=== PATIENT | male | born 1970 ===

== ENCOUNTER 2020-01-14 00:10 | Emergency (ER) | payer BC, OTHER ==
[2020-01-14] MEDS ORDERED: Acetaminophen/HYDROcodone 325-5 MG Tab ONE (00:20)
[2020-01-14] MEDS ORDERED: predniSONE 10 MG Tab ONE (00:20)
[2020-01-14] MEDS: Albuterol/Ipratropium 3.0-0.5 MG/3 ML Neb Soln NEB ONE (00:48)
[2020-01-14] MEDS: Ketorolac 60 MG/2 ML SDV IM ONE (00:49)
--- NOTE | 2020-01-14 00:51 | EDM.PDOC ---
ED HPI GENERAL MEDICAL PROBLEM - General Chief Complaint: Fever Stated Complaint: flu s/s Time Seen by Provider: 01/14/20 00:15 Source of Information: Reports: Patient History Limitations: Reports: No Limitations - History of Present Illness INITIAL COMMENTS - FREE TEXT/NARRATIVE: Gradual onset Friday of h/a. Continued to work through it. Became more ' splitting' in nature and associated with chills on Friday. Seen on Friday and reassured. Ongoing body aches. Also, annoying dry cough interfered with sleep Friday evening. Seen again and provided with albuterol MDI. Not much help. No h/o bronchospastic concerns. Denies ill exposure and/or travel history. - Related Data Allergies Allergy/AdvReac Type Severity Reaction Status Date / Time No Known Allergies Allergy Verified 03/23/16 14:22 Home Meds: Home Meds Citalopram [Citalopram HBr] 40 mg PO DAILY 03/23/16 [History] Lisinopril/Hydrochlorothiazide [Lisinopril-Hctz 20-12.5 mg Tab] 1 tab PO DAILY 03/23/16 [History] Metoprolol Succinate 50 mg PO DAILY 03/23/16 [History] Simvastatin [Zocor] 40 mg PO DAILY 03/23/16 [History] Past Medical History Cardiovascular History: Reports: Hypertension Social & Family History - Family History Family Medical History: Noncontributory ED ROS GENERAL - Review of Systems Review Of Systems: See Below Constitutional: Reports: Fever, Chills HEENT: Reports: Throat Pain. Denies: Ear Pain Respiratory: Reports: Cough. Denies: Sputum Cardiovascular: Denies: Chest Pain GI/Abdominal: Reports: No Symptoms : Reports: No Symptoms ED EXAM, GENERAL - Physical Exam Exam: See Below Exam Limited By: No Limitations General Appearance: Alert, WD/WN, No Apparent Distress Eye Exam: Bilateral Eye: EOMI, PERRL Ears: Normal External Exam, Normal Canal, Hearing Grossly Normal, Normal TMs Nose: Normal Inspection, Normal Mucosa Throat/Mouth: Normal Inspection, Normal Lips, Normal Oropharynx, Normal Voice Head: Atraumatic, Normocephalic Neck: Normal Inspection, Supple, Non-Tender, Full Range of Motion. No: Lymphadenopathy (R), Lymphadenopathy (L) Respiratory/Chest: No Respiratory Distress, Lungs Clear, Normal Breath Sounds GI/Abdominal: Normal Bowel Sounds, Soft Extremities: Normal Inspection, Normal Range of Motion, Normal Capillary Refill Course - Orders/Labs/Meds Orders: Active Orders 24 hr Category Date Time Status RT Aerosol Therapy [RC] ASDIRECTED Care 01/14/20 00:45 Ordered Ketorolac [Toradol] Med 01/14/20 00:46 Once 60 mg IM ONETIME ONE Meds: Medications Discontinued Medications Generic Name Dose Route Start Last Admin Trade Name Ranjitq PRN Reason Stop Dose Admin Albuterol/Ipratropium 3 ml 01/14/20 00:45 Duoneb 3.0-0.5 Mg/3 Ml NEB 01/14/20 00:46 ONETIME ONE Departure - Departure Time of Disposition: 01:00 Disposition: Home, Self-Care 01 Clinical Impression: Cough - Discharge Information Instructions: Cough, Adult, [id number] - My Orders Last 24 Hours: My Active Orders 01/14/20 00:45 RT Aerosol Therapy [RC] ASDIRECTED 01/14/20 00:46 Ketorolac [Toradol] 60 mg IM ONETIME ONE - Assessment/Plan Last 24 Hours: My Active Orders 01/14/20 00:45 RT Aerosol Therapy [RC] ASDIRECTED 01/14/20 00:46 Ketorolac [Toradol] 60 mg IM ONETIME ONE
[2020-01-14 03:05] VITALS: BP 130/90; PULSE 115
== END 2020-01-14 01:24 | disposition home or self-care (01) ==
LOC: LB.ED 00:10
DX: R05 Cough (principal); I10 Essential (primary) hypertension; Z79.899 Other long term (current) drug therapy
CPT/HCPCS: 87804; 87804-59; 96372; 99284; 99284-25; A9270-GY; J1885; J7620-GY; U0001; U0002

== ENCOUNTER 2021-03-12 19:57 | Emergency (ER) | payer MEDICAID ==
[2021-03-12 20:19] VITALS: BP 159/84; PULSE 105
[2021-03-12] MEDS ORDERED: Sodium Chloride 0.9% 10 ML Syringe FLUSH PRN (20:24)
--- NOTE | 2021-03-12 20:33 | EDM.PDOC ---
ED HPI GENERAL MEDICAL PROBLEM - General Chief Complaint: Gastrointestinal Problem Stated Complaint: fatigue, flu symptoms Time Seen by Provider: 03/12/21 19:57 Source of Information: Reports: Patient History Limitations: Reports: No Limitations - History of Present Illness INITIAL COMMENTS - FREE TEXT/NARRATIVE: 50 year old male with PMH of HTN, depression and diverticulitis presents to ED with BRADY, diarrhea, and dizziness that started this AM. Denies any CP, SOB, fever, cough, abdominal pain, blood in stool, nausea. He has had several episodes of diarrhea today and denies any abd pain with palpation, but states this is how his last exacerbation of diverticulitis started. Onset: Today Improves with: Reports: None Worsens with: Reports: None Associated Symptoms: Reports: Headaches - Related Data Allergies Allergy/AdvReac Type Severity Reaction Status Date / Time No Known Allergies Allergy Verified 03/23/16 14:22 Home Meds: Home Meds Citalopram [Citalopram HBr] 40 mg PO DAILY 03/23/16 [History] Lisinopril/Hydrochlorothiazide [Lisinopril-Hctz 20-12.5 mg Tab] 1 tab PO DAILY 03/23/16 [History] Metoprolol Succinate 50 mg PO DAILY 03/23/16 [History] Simvastatin [Zocor] 40 mg PO DAILY 03/23/16 [History] Past Medical History Cardiovascular History: Reports: Hypertension Social & Family History - Family History Family Medical History: No Pertinent Family History ED ROS GENERAL - Review of Systems Review Of Systems: See Below Constitutional: Reports: Decreased Appetite HEENT: Reports: No Symptoms Respiratory: Reports: No Symptoms Cardiovascular: Reports: No Symptoms Endocrine: Reports: No Symptoms GI/Abdominal: Reports: Diarrhea, Decreased Appetite : Reports: No Symptoms Musculoskeletal: Reports: No Symptoms Skin: Reports: No Symptoms Neurological: Reports: Dizziness Psychiatric: Reports: No Symptoms ED EXAM, GI/ABD - Physical Exam Exam: See Below Exam Limited By: No Limitations General Appearance: Alert, No Apparent Distress Eyes: Bilateral: Normal Appearance Ears: Normal External Exam, Hearing Grossly Normal Nose: Normal Inspection, Normal Mucosa, No Blood Throat/Mouth: Normal Inspection, Normal Voice, No Airway Compromise Head: Atraumatic Neck: Normal Inspection, Non-Tender, Full Range of Motion Respiratory/Chest: No Respiratory Distress, Lungs Clear, Normal Breath Sounds Cardiovascular: Normal Peripheral Pulses, No Edema, No JVD, No Murmur, Tachycardia GI/Abdominal Exam: Normal Bowel Sounds, Soft, Non-Tender, No Organomegaly, No Distention Back Exam: Normal Inspection, Full Range of Motion. No: CVA Tenderness (R), CVA Tenderness (L) Extremities: Normal Inspection, Normal Range of Motion, Non-Tender, No Pedal Edema, Normal Capillary Refill Neurological: Alert, Oriented, Normal Cognition, Normal Gait, No Motor/Sensory Deficits Psychiatric: Normal Affect, Normal Mood Skin Exam: Warm, Dry, Intact, Normal Color, No Rash Lymphatic: No Adenopathy Course - Vital Signs Last Recorded V/S: Last Vital Signs Temp 97.9 F 03/12/21 19:57 Pulse 105 H 03/12/21 19:57 Resp 20 03/12/21 19:57 BP 159/84 H 03/12/21 19:57 Pulse Ox 97 03/12/21 19:57 - Orders/Labs/Meds Orders: Active Orders 24 hr Category Date Time Status EKG Documentation Completion [RC] ASDIRECTED Care 03/12/21 20:26 Active Abdomen Pelvis w Cont [CT] Stat Exams 03/12/21 20:24 Ordered Iopamidol [Isovue-300 (61%)] Med 03/12/21 20:45 Active 100 ml IV . DIRECTED Sodium Chloride 0.9% [Normal Saline] 1,000 ml Med 03/12/21 20:48 Active IV .BOLUS Sodium Chloride 0.9% [Saline Flush] Med 03/12/21 20:24 Active 10 ml FLUSH ASDIRECTED PRN Peripheral IV Insertion Adult [OM.PC] Routine Oth 03/12/21 20:24 Ordered EKG 12 Lead [EK] Routine Ther 03/12/21 20:24 Ordered Medication Orders Sodium Chloride (Normal Saline) 1,000 mls @ 1,000 mls/hr IV .BOLUS ONE Stop: 03/12/21 21:47 Last Admin: 03/12/21 20:10 Dose: 1,000 mls/hr Documented by: ISHMAEL Iopamidol (Iopamidol 612 Mg/Ml 100 Ml Bottle) 100 ml IV . DIRECTED PELON Last Admin: 03/12/21 21:22 Dose: 100 ml Documented by: LINDSEY Sodium Chloride (Sodium Chloride 0.9% 10 Ml Syringe) 10 ml FLUSH ASDIRECTED PRN PRN Reason: Keep Vein Open Labs: Laboratory Tests 03/12/21 03/12/21 03/12/21 Range/Units 20:15 20:24 20:24 WBC 10.5 (4.0-11.0) K/uL RBC 5.43 (4.50-6.50) M/uL Hgb 16.0 (13.0-18.0) g/dL Hct 47.3 (40.0-54.0) % MCV 87 (76-96) fL MCH 29.5 (27.0-32.0) pg MCHC 33.8 (31.0-35.0) g/dL RDW 13.7 (11.0-16.0) % Plt Count 219 (150-400) K/uL MPV 11.5 H (6.0-10.0) fL Neut % (Auto) 57.2 (45.0-70.0) % Lymph % (Auto) 30.9 (20.0-40.0) % [place] % (Auto) 8.7 (3.0-10.0) % Eos % (Auto) 2.7 (1.0-5.0) % Baso % (Auto) 0.5 (0.0-0.5) % Neut # (Auto) 6.00 (2.00-7.50) K/uL Lymph # (Auto) 3.23 (1.50-4.00) K/uL [place] # (Auto) 0.91 H (0.20-0.80) K/uL Eos # (Auto) 0.28 (0.04-0.40) K/uL Baso # (Auto) 0.05 (0.02-0.10) K/uL Sodium 135 L (136-145) mmol/L Potassium 4.1 (3.5-5.1) mmol/L Chloride 100 (98-107) mmol/L Carbon Dioxide 26.9 (21.0-32.0) mmol/L Anion Gap 12.2 (5.0-15.0) mmol/L BUN 15 D (8-26) mg/dL Creatinine 1.03 (0.70-1.30) mg/dL Est Cr Clr Drug Dosing 91.38 mL/min Estimated GFR (MDRD) > 60 (>60) MLS/MIN BUN/Creatinine Ratio 14.6 (6-25) Glucose 152 H (74-100) mg/dL Calcium 9.0 (8.5-10.1) mg/dL Total Bilirubin 0.6 D (0.0-1.0) mg/dL AST 30 (15-37) U/L ALT 60 (12-78) U/L Alkaline Phosphatase 81 (46-116) U/L Total Protein 8.0 (6.4-8.2) g/dL Albumin 4.3 (3.4-5.0) g/dL Globulin 3.7 (2.2-4.2) g/dL Albumin/Globulin Ratio 1.2 (0.8-2.0) SARS CoV-2 RNA Rapid NATALIE Negative Meds: Medications Generic Name Dose Route Start Last Admin Trade Name Freq PRN Reason Stop Dose Admin Sodium Chloride 1,000 mls @ 1,000 mls/hr 03/12/21 20:48 03/12/21 20:10 Normal Saline IV 03/12/21 21:47 1,000 mls/hr .BOLUS ONE Administration Iopamidol 100 ml 03/12/21 20:45 03/12/21 21:22 Iopamidol 612 Mg/Ml 100 Ml Bottle IV 100 ml . DIRECTED PELON Administration Sodium Chloride 10 ml 03/12/21 20:24 Sodium Chloride 0.9% 10 Ml Syringe FLUSH ASDIRECTED PRN Keep Vein Open Discontinued Medications Generic Name Dose Route Start Last Admin Trade Name Freq PRN Reason Stop Dose Admin Sodium Chloride 50 ml 03/12/21 20:42 03/12/21 21:22 Sodium Chloride 0.9% 50 Ml Sdv FLUSH 03/12/21 20:43 50 ml ONETIME ONE Administration Departure - Departure Time of Disposition: 21:55 Disposition: Home, Self-Care 01 Clinical Impression: Gastroenteritis, Gastroenteritis, Diarrhea, Diverticulosis large intestine w/o perforation or abscess w/o bleeding Diarrhea Qualifiers: Diarrhea type: unspecified type Qualified Code(s): R19.7 - Diarrhea, unspecified - Discharge Information *PRESCRIPTION DRUG MONITORING PROGRAM REVIEWED*: Not Applicable *COPY OF PRESCRIPTION DRUG MONITORING REPORT IN PATIENT LAUREN: Not Applicable Instructions: Viral Gastroenteritis, Adult, [id number], Dehydration, Adult, [id number] Referrals: PCP,None [Primary Care Provider] - Forms: ED Department Discharge, ED Return to Work/School Form Additional Instructions: Return to ED for any increased or new concerning symptoms. Drink plenty of fluids,Eat bland foods, wash your hands. You may take imodium as directed for diarrhea. Sepsis Event Note (ED) - Evaluation Sepsis Screening Result: No Definite Risk - Focused Exam Vital Signs: Vital Signs Temp Pulse Resp BP Pulse Ox 03/12/21 19:57 97.9 F 105 H 20 159/84 H 97 - My Orders Last 24 Hours: My Active Orders 03/12/21 20:24 Abdomen Pelvis w Cont [CT] Stat Sodium Chloride 0.9% [Saline Flush] 10 ml FLUSH ASDIRECTED PRN Peripheral IV Insertion Adult [OM.PC] Routine EKG 12 Lead [EK] Routine 03/12/21 20:26 EKG Documentation Completion [RC] ASDIRECTED 03/12/21 20:45 Iopamidol [Isovue-300 (61%)] 100 ml IV . DIRECTED 03/12/21 20:48 Sodium Chloride 0.9% [Normal Saline] 1,000 ml IV .BOLUS - Assessment/Plan Last 24 Hours: My Active Orders 03/12/21 20:24 Abdomen Pelvis w Cont [CT] Stat Sodium Chloride 0.9% [Saline Flush] 10 ml FLUSH ASDIRECTED PRN Peripheral IV Insertion Adult [OM.PC] Routine EKG 12 Lead [EK] Routine 03/12/21 20:26 EKG Documentation Completion [RC] ASDIRECTED 03/12/21 20:45 Iopamidol [Isovue-300 (61%)] 100 ml IV . DIRECTED 03/12/21 20:48 Sodium Chloride 0.9% [Normal Saline] 1,000 ml IV .BOLUS Plan: Patient has had 1 episode of diarrhea in the ED. CT scan shows mild diverticulosis. We discussed antibiotics, patient is afebrile, denies any abdominal pain, normal WBC, so patient decided to not start antibiotics, but he will return if he develops any abdominal pain. He will take imodium at home as needed for diarrhea. Advised him to drink plenty of water, clear liquids tonight, bland diet tomorrow. He verbalized understanding and all questions were answered prior to DC.
[2021-03-12] MEDS ORDERED: Sodium Chloride 0.9% 50 ML SDV FLUSH ONE (20:42)
[2021-03-12] MEDS ORDERED: Iopamidol 612 MG/ML 100 ML Bottle IV SCH (20:45)
[2021-03-12] MEDS ORDERED: Sodium Chloride 0.9% 1,000 ML IV ONE (20:48)
--- NOTE | 2021-03-13 07:54 | CT ---
Date of Service: 03/12/21 Clinical Data: dizziness ENHANCED ABDOMEN AND PELVIC CT: Multislice acquisition through the abdomen and pelvis with IV, but without oral contrast was performed. Comparison was made to a prior exam dated 10/14/19. The lung bases are clear. The heart size is normal. There is diffuse fatty infiltration of the liver. No focal hepatic lesions. The gallbladder appears normal. No biliary duct dilatation. The spleen appears normal. The pancreas appears normal. The right and left adrenals appear normal. The right and left kidneys enhance symmetrically. No hydronephrosis or hydroureter. The bladder is partially fluid-filled. It appears normal. The prostate is mildly enlarged. There is diverticulosis of the descending and sigmoid colon. There is mild pericolonic fat stranding adjacent to the proximal and mid sigmoid colon consistent with diverticulitis. No evidence of a diverticular abscess. No free air. No free fluid. No dilated loops of bowel. No adenopathy. No aortic aneurysm or dissection. There is a fat-containing left inguinal hernia. There is degenerative disk disease throughout the lower thoracic and lumbar spine. No other significant findings. [id number] [facility]
== END 2021-03-12 21:40 | disposition home or self-care (01) ==
LOC: LB.ED 19:57
DX: K52.9 Noninfective gastroenteritis and colitis, unspecified (principal); K57.30 Diverticulosis of large intestine without perforation or abscess without bleeding; Z20.822 Contact with and (suspected) exposure to COVID-19
CPT/HCPCS: 36415; 74177; 80053; 85025; 93005; 99283; 99284-25; J7030; Q9967; U0002

== ENCOUNTER 2021-04-16 21:13 | Emergency (ER) | payer MEDICAID ==
[2021-04-16] MEDS ORDERED: Ciprofloxacin 500 MG Tab ONE (22:00)
--- NOTE | 2021-04-16 23:54 | ER ---
HISTORY OF PRESENT ILLNESS: A 50-year-old male here with complaints of lower abdominal pain on the left quadrant. He has had this for about 3 days. He states that he feels like he needs to go to the bathroom, but has had a little trouble doing this lately. The patient states it has mostly been air. He has had some loose stools, but also feels like he could use a laxative. He states he has history of diverticulitis for about 15 years and this is his normal symptoms when he gets an episode. He states the last couple months he has had a little more episodes than normal. The patient states he does not have a primary care provider and has not been seen or evaluated for this lately. He has not been nauseated and has not had any falls or injuries to this area. OBJECTIVE: GENERAL APPEARANCE: The patient is awake and alert. No obvious distress. VITAL SIGNS: Reviewed. He has a low-grade temp in the 99 range. LUNGS: Clear. ABDOMEN: Soft, protuberant. There is tenderness with guarding in the lower left quadrant only. Bowel sounds are present but hypoactive. SKIN: Warm and dry. DIAGNOSIS: Abdominal pain, acute lower left quadrant with history of diverticulitis. TREATMENT PLAN: I will start the patient on the Cipro tonight and give him a script for Flagyl that he can start tomorrow morning and also a script for the remaining course of Cipro. He is to utilize a soft bland diet and increase his liquid intake. We do not have a laxative here, nursing staff informs me, so I advised the patient that if he still feels he needs a laxative, he can get an [id number] one and use it for just 1 or 2 doses. Activity should be light duty as tolerated for the next couple of days. If his symptoms are not obviously improving, he would need to come in for further evaluation. The patient is agreeable with this. In fact, he states he does not want any further evaluation tonight because he is confident this is another episode of diverticulitis. CRS/MODL /[id number]
[2021-04-17 00:47] VITALS: BP 137/98; PULSE 86
== END 2021-04-16 22:21 | disposition home or self-care (01) ==
LOC: LB.ED 21:13
DX: R10.32 Left lower quadrant pain (principal); Z87.19 Personal history of other diseases of the digestive system
CPT/HCPCS: 99283; A9270-GY

== ENCOUNTER 2021-06-15 02:35 | Emergency (ER) | payer MEDICAID ==
[2021-06-15 03:05] VITALS: BP 186/118; PULSE 74
[2021-06-15] MEDS: LORazepam 0.5 MG Tab ONE (03:16)
--- NOTE | 2021-06-15 09:33 | EDM.PDOCBH ---
ED HPI GENERAL MEDICAL PROBLEM - General Chief Complaint: Headache Stated Complaint: HEADACHE AND FLU SYMPTOMS Time Seen by Provider: 06/15/21 03:30 - History of Present Illness INITIAL COMMENTS - FREE TEXT/NARRATIVE: Pt is here with C/O depression and anxiety. He feels tired and fatigued, no interest in doing things. He has been missing work. He tried to get into a clinic but there were no openings. He denies any thoughts of suicide or homicide. Occasionally when he becomes anxious he will have chest pain, but not today. He is on Lexapro and 4 BP meds. - Related Data Allergies Allergy/AdvReac Type Severity Reaction Status Date / Time No Known Allergies Allergy Verified 06/15/21 02:50 Home Meds: Home Meds Escitalopram [Lexapro] 10 mg PO DAILY 04/17/21 [History] Metoprolol Succinate 100 mg PO DAILY 04/17/21 [History] Simvastatin 20 mg PO DAILY 04/17/21 [History] hydroCHLOROthiazide [Hydrochlorothiazide] 12.5 mg PO DAILY 04/17/21 [History] lisinopriL [Lisinopril] 40 mg PO DAILY 04/17/21 [History] Past Medical History HEENT History: Reports: Impaired Vision Cardiovascular History: Reports: Hypertension Psychiatric History: Reports: Depression - Past Surgical History HEENT Surgical History: Reports: None Social & Family History - Family History Family Medical History: No Pertinent Family History - Tobacco Use Tobacco Use Status *Q: Never Tobacco User Second Hand Smoke Exposure: No - Caffeine Use Caffeine Use: Reports: Soda Caffeine Use Comment: 2 12 oz bottles a day - Recreational Drug Use Recreational Drug Use: No ED ROS GENERAL - Review of Systems Review Of Systems: Comprehensive ROS is negative, except as noted in HPI. Psychiatric: Reports: Anxiety, Depression ED EXAM, BEHAVIORAL HEALTH - Physical Exam Exam: See Below Eye Exam: Bilateral Eye: PERRL COURSE, BEHAVIORAL HEALTH COMP - Course Vital Signs: Last Vital Signs Temp 98.6 F 06/15/21 02:45 Pulse 74 06/15/21 02:45 Resp 18 06/15/21 02:45 BP 186/118 H 06/15/21 02:45 Pulse Ox 96 06/15/21 02:45 Orders, Labs, Meds: Medications Discontinued Medications Generic Name Dose Route Start Last Admin Trade Name Freq PRN Reason Stop Dose Admin Lorazepam Confirm 06/15/21 03:26 06/15/21 03:16 Lorazepam 0.5 Mg Tab Administered 06/15/21 03:27 0.5 mg Dose Administration 0.5 mg .ROUTE .STK-MED ONE Discharge vs Psych Eval/Treatment:: 06/15/21 09:32 Pt will be started on Ativan 0.5 mg every 8 hours as needed. He is to establish care with a provider by early next week. I will give him a slip for missing work thru today. Departure - Departure Time of Disposition: 04:15 Disposition: Home, Self-Care 01 Condition: Good Clinical Impression: Anxiety Depression Qualifiers: Depression Type: unspecified Qualified Code(s): F32.9 - Major depressive disorder, single episode, unspecified - Discharge Information *PRESCRIPTION DRUG MONITORING PROGRAM REVIEWED*: Not Applicable *COPY OF PRESCRIPTION DRUG MONITORING REPORT IN PATIENT LAUREN: Not Applicable Instructions: Major Depressive Disorder, Adult, [id number] Referrals: PCP,None [Primary Care Provider] - Forms: ED Department Discharge Additional Instructions: Take Ativan 0.5mg every 8 hours as needed for anxiety. Follow up with primary MD for anxiety and depression Sepsis Event Note (ED) - Evaluation Sepsis Screening Result: No Definite Risk - Focused Exam Vital Signs: Vital Signs Temp Pulse Resp BP Pulse Ox 06/15/21 02:45 98.6 F 74 18 186/118 H 96
== END 2021-06-15 03:30 | disposition home or self-care (01) ==
LOC: LB.ED 02:35
DX: F32.9 Major depressive disorder, single episode, unspecified (principal); F41.9 Anxiety disorder, unspecified; I10 Essential (primary) hypertension; Z79.899 Other long term (current) drug therapy
CPT/HCPCS: 99283; A9270

== ENCOUNTER 2022-05-15 13:39 | Emergency (ER) | payer SELFPAY ==
[2022-05-15] MEDS: Sodium Chloride 0.9% 1,000 ML IV ONE (15:55)
[2022-05-15 16:33] LABS: ESTIMATED GFR 96 mL/min (>60)
[2022-05-15 16:51] VITALS: BP 172/102; PULSE 73
== END 2022-05-15 17:50 | disposition home or self-care (01) ==
LOC: LB.ED 13:39
DX: K57.92 Diverticulitis of intestine, part unspecified, without perforation or abscess without bleeding (principal); I10 Essential (primary) hypertension; I48.91 Unspecified atrial fibrillation; Z79.899 Other long term (current) drug therapy; Z86.16 Personal history of COVID-19; Z20.822 Contact with and (suspected) exposure to COVID-19
CPT/HCPCS: 36415; 80053; 81001; 84443; 85025; 85651; 96360; 99284-25; J7030; U0002

== ENCOUNTER 2022-12-25 05:25 | Emergency (ER) | payer SELFPAY ==
[2022-12-25 05:37] VITALS: BP 151/107; PULSE 91
[2022-12-25] MEDS ORDERED: Acetaminophen/HYDROcodone 325-5 MG Tab ONE (05:45)
[2022-12-25] MEDS ORDERED: Ciprofloxacin 500 MG Tab ONE (05:45)
[2022-12-25] MEDS ORDERED: metroNIDAZOLE 500 MG Tab PO ONE (05:49)
[2022-12-25] MEDS ORDERED: Ciprofloxacin 500 MG Tab PO ONE (05:50)
[2022-12-25] MEDS ORDERED: Acetaminophen/HYDROcodone 325-5 MG Tab PO ONE (05:50)
== END 2022-12-25 06:00 | disposition home or self-care (01) ==
LOC: LB.ED 05:25
DX: K57.92 Diverticulitis of intestine, part unspecified, without perforation or abscess without bleeding (principal); I48.91 Unspecified atrial fibrillation; E78.00 Pure hypercholesterolemia, unspecified; I10 Essential (primary) hypertension; E11.9 Type 2 diabetes mellitus without complications; Z86.16 Personal history of COVID-19; Z87.891 Personal history of nicotine dependence; Z79.899 Other long term (current) drug therapy; Z79.84 Long term (current) use of oral hypoglycemic drugs
CPT/HCPCS: 99283; A9270-GY

== ENCOUNTER 2023-01-04 00:18 | Emergency (ER) | payer SELFPAY ==
[2023-01-04 01:09] VITALS: BP 133/94; PULSE 85
[2023-01-04] MEDS ORDERED: Bisacodyl 5 MG Tab ONE (03:00)
[2023-01-04] MEDS ORDERED: Docusate Sodium 250 MG Cap ONE (03:00)
[2023-01-04] MEDS ORDERED: Ciprofloxacin 500 MG Tab ONE (03:00)
[2023-01-04] MEDS ORDERED: metroNIDAZOLE 500 MG Tab ONE (03:00)
== END 2023-01-04 03:06 | disposition home or self-care (01) ==
LOC: LB.ED 00:18
DX: K64.4 Residual hemorrhoidal skin tags (principal); E11.9 Type 2 diabetes mellitus without complications; I48.91 Unspecified atrial fibrillation; I10 Essential (primary) hypertension; Z72.0 Tobacco use; Z79.84 Long term (current) use of oral hypoglycemic drugs; Z79.899 Other long term (current) drug therapy
CPT/HCPCS: 36415; 80048; 82947; 85027; 99284; A9270